=== PATIENT | male | born 1955 | race African-American/Black ===

== ENCOUNTER 2021-06-10 08:35 | Emergency (ER) | payer BC ==
[~2021-06-10] VITALS: Ht 180.3 cm; Wt 90.0 kg
[2021-06-10] MEDS ORDERED: LISINOPRIL2.5 MG PO (08:54)
[2021-06-10] MEDS ORDERED: DOXYCYC MONO100 M2 PO (09:18)
[2021-06-10] MEDS ORDERED: VALACYCLOVIR HCL1 GM PO (09:18)
[2021-06-10 09:23] VITALS: BP 185/112
== END 2021-06-10 09:42 | disposition home or self-care (01) | DRG 125 ==
LOC: ED 08:35
DX: H00.031 Abscess of right upper eyelid (principal); I10 Essential (primary) hypertension